=== PATIENT | female | born 1985 | race Caucasian/White ===

== ENCOUNTER 2016-05-05 12:30 | Inpatient (IN) | payer OTHER ==
[~2016-05-05] VITALS: Ht 165.1 cm; Wt 65.8 kg
--- NOTE | ~2016-05-05 | HC ---
[facility] [address] [place] [address] CONSULTATION Name: TADDELROY Pineda Room #: 450-[facility] IN M.R.#: [id number] Admission: 05/05/16 Attend Phys: Te Metcalf MD Discharge: Date of : 81 Report #: [id number] THIS REPORT FOR: //name// CC: Carmela Metcalf INFECTIOUS DISEASE CONSULTATION REASON FOR CONSULTATION: I was asked to evaluate concerning possible Lyme disease. HISTORY OF PRESENT ILLNESS: The patient was a 30-year-old who presented with headache and paresthesias to her left side of her body, face, arm, leg. 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 She feels that this is a different type of headache for her. She has had a pressure pain for at least two to three weeks, then exacerbation of this with acute left sided headache and paresthesias. Imaging studies were negative including CT scan of the head and MRI scan of the head. Previous to this, she has been diagnosed with a PFO and cardiology evaluation was concerned about possible POTS syndrome. About 6 months ago, she developed arthralgias and myalgias associated with profound fatigue. Actually the fatigue has been going on for several years, but the arthralgias was a newer finding, mostly involving her hands, elbows and her left knee. Workup so far has been inconclusive. There was a suspicion that she may have had Lyme's disease by serology testing. Her IgM to her recollection Western blot was positive with a negative IgG. She was treated with a 3 week course of doxycycline. Following this, she was seen by Infectious Diseases at [facility] who felt that Lyme disease was not the current diagnosis. She is unclear whether she has had other autoimmune workup. She is HIV negative and TSH she says was normal. In addition to the above, she has had tick exposure when she was a young child and again during, college. No definite deer tick exposure. No prolonged tick exposure. ALLERGIES: None. MEDICATIONS: As noted on her MAR. She has been on no recent antibiotics. REVIEW OF SYSTEMS: Notes no fever, chills or sweats. No rashes. No adenopathy. No cough or sputum production. No nausea, vomiting or diarrhea. PAST MEDICAL HISTORY: Palpitations, migraine headaches, syncopal episodes, PFO. FAMILY HISTORY: Noncontributory. SOCIAL HISTORY: Nonsmoker, no significant alcohol intake. She has no [facility] [address] [place] [address] CONSULTATION Name: DELROY MISHRA Room #: 450-P [facility]#: [id number] Admission: 05/05/16 Attend Phys: Te Metcalf MD Discharge: Date of : 81 Report #: [id number]. PHYSICAL EXAMINATION: VITAL SIGNS: Afebrile, hemodynamically stable. GENERAL: She was alert and cooperative and pleasant, in no acute distress. SKIN: Unremarkable. She had tattoo on her lower back. No adenopathy head and neck. HEENT: Unremarkable. LUNGS: Clear. HEART: Regular. ABDOMEN: Soft and nontender. EXTREMITIES: Joints unremarkable other than tender left ankle because she sprained this she said several weeks ago. LABORATORY STUDIES: Sodium 137, potassium 3.7, creatinine 1, liver function tests normal. CRP normal. Sedimentation rate normal. Drug screen negative. Hemoglobin 14, white count 9.4. TSH normal. Urinalysis unremarkable. Echocardiogram small PFO, otherwise normal. IMPRESSION AND PLAN: A 30-year-old with headache and paresthesias. I do not see any evidence of active Lyme disease at this time. I do suspect that her fatigue and arthralgias fit most consistently with chronic fatigue syndrome with the cardiac issues, POTS may well be a reasonable consideration. By history, appears that she has a false positive IgM Lyme, Western blot antibody test. We would recommend obtaining her outside records to confirm her reports. Would pursue autoimmune evaluation if not done yet. Would recommend no antibiotic administration at this time. I will check back when her outside records are available. <ELECTRONICALLY SIGNED> By: Jose Lombardi MD 05/07/16 1027 1746 29 Jose Lombardi MD /nt
--- NOTE | ~2016-05-05 | EKG ---
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
--- NOTE | ~2016-05-05 | D ---
[facility] [address] [place] [address] DISCHARGE SUMMARY Name: DELROY MISHRA Room #: 450-P [facility] IN M.R.#: [id number] Admission: 05/05/16 Attend Phys: Te Metcalf MD Discharge: 05/07/16 Date of : 81 Report #: [id number] THIS REPORT FOR: //name// CC: Carmela Metcalf DATE OF SERVICE: 05/07/2016 TYPE OF DICTATION: Discharge summary. After [id number] encounter, I did see the patient and examined her on the day of discharge 05/07/2016. DISCHARGE DIAGNOSES: 1. Left sided weakness, resolved. 2. Headache. 3. Status migrainosus. 4. Hyperlipidemia. 5. Hypomagnesemia, resolved. 6. Patent foramen ovale. 7. History of palpitation. 8. History of Lyme disease. DISCHARGE MEDICATIONS: See discharge summary. HOSPITAL COURSE: The patient was admitted to the hospital secondary to left-sided numbness and weakness with chronic headache and the patient known to have a history of patent foramen ovale, so Cardiology and Neurology both were consulted. On the Cardiology site, Dr. Wiley does think these symptoms are secondary to her PFO, think that we can manage her PFO medically for now. On the other site, she had Neurology consult. MRI was ordered and came back negative and she received 2 infusions of Depakote and third one is going to be this afternoon today and then, she will remain mg p.o. b.i.d. Neurology recommended her to go home after the fusion of Depakote and to follow up in 1 month from now. The patient is stable and she is going home as mentioned above. <ELECTRONICALLY SIGNED> By: Selene Mock MD 05/08/16 1708 1307 1500 Selene Mock MD /nt
--- NOTE | ~2016-05-05 | HC ---
[facility] [address] [place] [address] CONSULTATION Name: DELROY MISHRA Room #: 450-P [facility] IN .R.#: [id number] Admission: 05/05/16 Attend Phys: Te Metcalf MD Discharge: 05/07/16 Date of : 81 Report #: [id number] THIS REPORT FOR: //name// CC: Carmela Metcalf DATE OF SERVICE: 05/06/2016 REASON FOR CONSULTATION: Numbness and tingling with a patent foramen ovale on echocardiography. HISTORY OF PRESENT ILLNESS: This is a very 30-year-old female patient, who has a history of migraine headaches; presented for evaluation of severe head pressure, nausea, vomiting, and left-sided and left facial numbness. This extended along the left side, but it involved the superior as well as the middle and lower parts of the face on the left side. She denied any significant prior symptomatology. She has never had anything to the point of having numbness and tingling like this. She has no orthopnea, PND, syncope, near syncope otherwise. He noticed that the sensation became somewhat uncomfortable and her headache worsened. In view of this, she went to emergency room for further assessment and evaluation. Six days or so ago, she had been seen as an outpatient at an urgent care clinic and prescribed prednisone and scheduled for an MRI, which has not yet been accomplished. She noticed that she had some episodes of dropping items with her hand in the meantime. She does report approximately 9 months history of these migrainous type headaches that have occurring on a weekly basis. She states anyhow recently they became much worse. She has had no dizziness or lightheadedness or falls or even blacking out with these. She does have a history of PFO, which was evaluated sometime ago, by echocardiography and correctly not closed. PAST MEDICAL HISTORY SIGNIFICANT FOR: 1. Lyme disease. 2. Patent foramen ovale. 3. Palpitation unrelated to the above. ALLERGIES: No known drug allergies. MEDICATIONS AT HOME: Prednisone, meclizine and ____. PAST SURGICAL HISTORY: Significant for no major surgical procedures. SOCIAL HISTORY: The patient does not smoke, does not consume alcohol, does not follow particular exercise regimen or dietary restriction. REVIEW OF SYSTEMS: Except for symptoms previously mentioned and those commensurate with comorbid states, the 10 point review of system is negative. [address] [address] CONSULTATION Name: TADDELROY Room #: 450-P [facility] IN .R.#: [id number] Admission: 05/05/16 Attend Phys: Te Metcalf MD Discharge: 05/07/16 Date of : 81 Report #: [id number] PHYSICAL EXAMINATION: VITAL SIGNS: Are noted and reviewed in the chart. GENERAL: A well-developed, well-nourished white female, resting comfortably, in no acute distress. HEENT: Normocephalic, atraumatic. Pupils are equal, round, reactive to light and accommodation. Extraocular muscles are intact. Sclerae and conjunctivae are anicteric. NECK: JVD is normal. Carotid upstrokes are bilaterally symmetrical. No bruits are heard. No thyromegaly. No lymphadenopathy. LUNGS: Clear to auscultation. No wheezes, rhonchi or crackles. No CVA tenderness. CARDIOVASCULAR: Demonstrates a regular rhythm. Normal first and second heart sounds. No ventricular or atrial gallops, no rubs noted. No murmurs. No lifts or heaves, PMI normal. ABDOMEN: Soft, nontender, nondistended. Normal bowel sounds. EXTREMITIES: Without cyanosis, clubbing or edema. Distal pulses are intact. DTR symmetrical. NEUROLOGIC: Demonstrates some numbness in the left side of her body as described above. No actual coordination deficits or focal deficits were identified. Cranial nerves 2 through 12 are grossly normal and symmetrical. PSYCHIATRIC: Alert, oriented with normal affect. SKIN: Warm and dry. LABORATORY DATA: Demonstrates magnesium of 1.6, potassium of 3.7, BUN and creatinine of 16 and 1.0, calcium was 9.1. H and H is 14.3 and 41.3. RADIOLOGIC DATA: CT scan failed to demonstrate any bleed. MRI is pending. Electrocardiogram, normal sinus rhythm, nonspecific ST-T wave changes. IMPRESSION: 1. Numbness and tingling, which does not follow a strictly neurologic distribution with the upper part of the forehead being ipsilateral as opposed to contralateral. Neurology will be consulted. No bleeds are noted. 2. Paten foramen ovale. There is no indication for closing this, except for recurrent embolic and documented embolic events or neurologic events on treatment (anticoagulation) or documented embolic events in an individual that had this significantly high care home risk such as younger individuals. In view of the absence of any objective evidence of embolic event and the possibility of being related migrainous headaches, at this point in time, there is no need to proceed with anything further. <ELECTRONICALLY SIGNED> By: Zaki Wiley MD 05/08/16 1235 53 [id number] Zaki Wiley MD /nt
--- NOTE | ~2016-05-05 | 2DMMODE ---
[facility] [place] [address] 2 D/M-MODE ECHOCARDIOGRAM Name: DELROY MISHRA Edwin Room #: 450-P [facility] IN .#: [id number] Admission: 05/05/16 Attend Phys: Maria A Bolton Discharge: Date of : 81 Date of Service: 05/06/16817 Report #: [id number] THIS REPORT FOR: //name// Transthoracic Echocardiography Ordering physician: Abby Crowe Referring physician: Carmela Alvarez Saida A. Inductor Tester: Sharita Jaimes Indications/History: PFO history. TIA vs. migraines. BP: 110 / HR: 60bpm Height: 65in Weight: 145.7lb 80 Study data: M-mode, complete 2D, complete spectral Doppler, and color Doppler. Location: Echo laboratory. Routine. Image quality was adequate. 2D measurements Normal Normal LVID ED 39mm 36-57 IVS ED 8.2mm 6-11 LVID ES 28mm 23-40 LVPW ED 7.7mm 6-11 LA volume 16ml/m2 16-28 AoRoot diam 29.5mm 21-37 index ED LVOT diameter 20mm 18-23 Findings: Left ventricle: The cavity size was normal. Wall thickness was normal. Systolic function was normal. The estimated ejection fraction was in the range of 55%. Wall motion was normal. Right ventricle: The cavity size was normal. Systolic function was normal. Right atrium: The atrium was normal in size. Left atrium: The atrium was normal in size. Volume index: 16ml/m2 (S). Atrial septum: There was a small patent foramen ovale noted with bubble study. Aortic valve: Structurally normal valve. Doppler: [facility] [address] [place] [address] 2 D/M-MODE ECHOCARDIOGRAM Name: DELROY MISHRA Room #: 450-P [facility] IN M.R.#: [id number] Admission: 05/05/16 Attend Phys: eT SteffMaria A Garner Discharge: Date of : 81 Date of Service: 05/06/16 0818 Report #: [id number] There was no stenosis. No regurgitation. Peak velocity: 117.3cm/s (S). Mitral valve: Structurally normal valve. Doppler: There was no evidence for stenosis. Trivial regurgitation. Peak E-wave velocity: 100.3cm/s. Peak gradient: 4mm Hg (D). Peak A-wave velocity: 41.9cm/s. Tricuspid valve: Structurally normal valve. Doppler: There was no evidence for stenosis. Mild regurgitation. Regurgitant peak velocity: 207.8cm/s. Peak RV-RA gradient: 17mm Hg (S). Pulmonic valve: Structurally normal valve. Doppler: There was no evidence for stenosis. Mild regurgitation. Pericardium: There was no pericardial effusion. Aorta: Aortic root: The aortic root was normal in size. Pulmonary artery: Systolic pressure was estimated to be 22mm Hg. Diastolic function: Normal diastolic function. Systemic veins: Inferior vena cava: The vessel was normal in size; the respirophasic diameter changes were in the normal range (= 50%). Conclusions 1. Left ventricle: The cavity size was normal. Wall thickness was normal. Systolic function was normal. The estimated ejection fraction was in the range of 55%. 2. Atrial septum: There was a small patent foramen ovale noted with bubble study. 3. Aortic valve: Structurally normal valve. 4. Mitral valve: Structurally normal valve. Trivial regurgitation. 5. Pulmonic valve: Mild regurgitation. 6. Tricuspid valve: Structurally normal valve. Mild regurgitation. 7. Pulmonary arteries: Systolic pressure was estimated to be 22mm Hg. <ELECTRONICALLY SIGNED> By: Zaki Wiley MD 05/06/16908 8 Zaki Wiley MD /ishan
[2016-05-05 12:31] VITALS: BP 128/78
[2016-05-05] MEDS ORDERED: PREDNISONE 10 M10 MG PO (13:24)
[2016-05-05] MEDS ORDERED: ANTIVERT25 MG PO (13:25)
[2016-05-05] MEDS ORDERED: CARISOPRODOL250 MG PO (13:27)
[2016-05-05 13:46] LABS: ABSOLUTE NEUTROPHILS 8.2 thou/uL (1.4-8.2); BASOPHILS 0.1 % (0.0-2.0); EOSINOPHILS 0.1 % (0.0-3.0); HEMATOCRIT 41.3 % (37.0-47.0); HEMOGLOBIN 14.3 gm/dL (12.0-15.0); LYMPHOCYTES 9.9 % (24.0-44.0); MCH 29.1 pg (26.0-34.0); MCHC 34.6 % (28.0-37.0); MCV 83.9 fL (80.0-100.0); MONOCYTES 2.6 % (1.0-8.0); PLATELET COUNT 225 thou/uL (150-400); POLYS 87.3 % (36.0-66.0); RBC 4.92 mil/uL (4.20-5.00); RDW 12.8 % (10.5-14.5); WBC 9.4 thou/uL (4.0-11.0)
[2016-05-05 13:48] LABS: MANUAL DIFF NO
[2016-05-05 13:51] LABS: ANION GAP 10 mmol/L (7-16); BUN 16 mg/dL (7-18); CALCIUM 9.1 mg/dL (8.5-10.1); CHLORIDE 100 mmol/L (98-107); CO2 27 mmol/L (21-32); GLUCOSE 113 mg/dL (70-99); POTASSIUM 3.7 mmol/L (3.5-5.1); SODIUM 137 mmol/L (136-145)
[2016-05-05 13:54] LABS: URINE BILIRUBIN NEGATIVE (Negative); URINE BLOOD NEGATIVE (Negative); URINE COLOR YELLOW; URINE GLUCOSE-RANDOM* NEGATIVE (Negative); URINE KETONES NEGATIVE (Negative); URINE NITRITE NEGATIVE (Negative); URINE PROTEIN (DIPSTICK) NEGATIVE (Negative); URINE SPECIFIC GRAVITY <= 1.005 (1.003-1.035); URINE UROBILINOGEN 0.2 E.U./dl (0.2-1.0)
[2016-05-05 14:00] LABS: ALBUMIN 3.9 g/dL (3.4-5.0); ALKALINE PHOSPHATASE 62 U/L (46-116); MAGNESIUM 1.6 mg/dL (1.8-2.4); SGOT 13 U/L (15-37); SGPT 18 U/L (30-65); TOTAL BILIRUBIN 0.5 mg/dL (<0.1-1.0); TOTAL PROTEIN 7.7 g/dL (6.4-8.2); TROPONIN-I < 0.04 ng/mL (<0.04-0.07)
[2016-05-05 14:02] LABS: AMP/METHAMP Negative (Negative); BARBITURATES Negative (Negative); BENZODIAZEPINES Negative (Negative); COCAINE Negative (Negative); METHADONE Negative (Negative); OPIATES Negative (Negative); PCP Negative (Negative); THC Negative (Negative)
[2016-05-05 14:06] LABS: APTT 23.8 Seconds (24.5-32.8); PROTIME 10.6 Seconds (9.3-11.4)
[2016-05-05 15:05] VITALS: BP 114/79
[2016-05-05 17:00] VITALS: BP 104/73
[2016-05-05 19:04] VITALS: BP 104/64
[2016-05-05 23:37] VITALS: BP 91/55
[2016-05-06 00:53] VITALS: BP 100/58
[2016-05-06 02:28] VITALS: BP 102/64
[2016-05-06 08:15] VITALS: BP 111/74
[2016-05-06 16:00] VITALS: BP 112/77
[2016-05-06 19:25] VITALS: BP 113/75
[2016-05-07 03:51] VITALS: BP 96/57
[2016-05-07 05:55] LABS: CHOLESTEROL 197 mg/dL (<200); HDL CHOLESTEROL 75 mg/dL (>40); LDL CHOLESTEROL 115 mg/dL (<100); TC:HDL 2.6 Ratio (Not establshd); TRIGLYCERIDE 35 mg/dL (<150); VLDL 7 mg/dL (<40)
[2016-05-07 05:56] LABS: SERUM ASSESSMENT Clear
[2016-05-07 07:55] VITALS: BP 103/71
[2016-05-07 11:37] VITALS: BP 99/68
[2016-05-07] MEDS ORDERED: TOPAMAX 25 MG T25 M1 PO (13:09)
[2016-05-07] MEDS ORDERED: ATORVASTATIN CA10 MG PO (13:09)
[2016-05-07 13:22] VITALS: BP 99/68
[2016-05-07 13:30] VITALS: BP 99/68
[2016-05-07 16:37] VITALS: BP 115/77
== END 2016-05-07 17:56 | disposition home or self-care (01) | DRG 103 ==
LOC: ER 12:30 → EROBS 14:37 → 4W 14:37
PROVIDERS: Emergency Medicine; Psychiatry & Neurology Neurology
DX: G43.901 Migraine, unspecified, not intractable, with status migrainosus (principal); G45.9 Transient cerebral ischemic attack, unspecified; Q21.1 Atrial septal defect; E78.5 Hyperlipidemia, unspecified; R20.9 Unspecified disturbances of skin sensation; E83.42 Hypomagnesemia; Z28.21 Immunization not carried out because of patient refusal; R53.82 Chronic fatigue, unspecified; R53.1 Weakness
CPT/HCPCS: 10045

== ENCOUNTER 2016-12-05 15:10 | Emergency (ER) | payer OTHER ==
[~2016-12-05] VITALS: Ht 165.1 cm; Wt 72.6 kg
--- NOTE | ~2016-12-05 | EKG ---
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 : 1985 Requested By: Heriberto Ramirez Order Number: [id number] MD: Darin Polk Measurements Intervals [place] Rate: 114 P: 65 OK: 166 QRS: 61 QRSD: 96 T: -1 QT: 331 QTc: 456 Interpretive Statements Sinus tachycardia Left atrial enlargement Anteroseptal infarct, age indeterminate Compared to ECG 05/05/2016 13:42:48 Atrial abnormality now present Myocardial infarct finding now present Sinus rhythm no longer present Electronically Signed On 12-07-2016 22:11:18 CDT by Darin Polk [email or web address] <ELECTRONICALLY SIGNED> By: Darin Polk MD 12/07/16 2211 1519 1519 Darin Polk MD /EPI
[~2016-12-05 15:10] MED LIST: ANTIVERT25 MG PO; ATORVASTATIN CA10 MG PO; CARISOPRODOL250 MG PO; PREDNISONE 10 M10 MG PO; TOPAMAX 25 MG T25 M1 PO
[2016-12-05] MEDS ORDERED: LEXAPRO 10 MG T10 M2 PO (15:28)
[2016-12-05 15:56] LABS: ABSOLUTE NEUTROPHILS 4.6 thou/uL (1.4-8.2); BASOPHILS 0.5 % (0.0-2.0); EOSINOPHILS 0.9 % (0.0-3.0); HEMATOCRIT 40.2 % (37.0-47.0); HEMOGLOBIN 13.7 gm/dL (12.0-15.0); LYMPHOCYTES 27.8 % (24.0-44.0); MCH 28.6 pg (26.0-34.0); MCV 84.1 fL (80.0-100.0); MONOCYTES 7.5 % (1.0-8.0); PLATELET COUNT 220 thou/uL (150-400); POLYS 63.3 % (36.0-66.0); RBC 4.78 mil/uL (4.20-5.00); RDW 12.8 % (10.5-14.5); WBC 7.2 thou/uL (4.0-11.0)
[2016-12-05 15:57] LABS: MANUAL DIFF NO
[2016-12-05 16:07] LABS: ANION GAP 4 mmol/L (7-16); BUN 10 mg/dL (7-18); CALCIUM 9.1 mg/dL (8.5-10.1); CHLORIDE 101 mmol/L (98-107); CO2 30 mmol/L (21-32); CREATININE 0.9 mg/dL (0.6-1.0); GLUCOSE 101 mg/dL (74-106); POTASSIUM 3.1 mmol/L (3.5-5.1); SODIUM 135 mmol/L (136-145)
[2016-12-05 16:15] LABS: ALBUMIN 4.1 g/dL (3.4-5.0); ALKALINE PHOSPHATASE 77 U/L (46-116); SGOT 25 U/L (15-37); SGPT 25 U/L (30-65); TOTAL BILIRUBIN 0.4 mg/dL (<0.1-1.0); TOTAL PROTEIN 8.3 g/dL (6.4-8.2); TROPONIN-I < 0.04 ng/mL (<0.04-0.07)
[2016-12-05 17:26] LABS: URINE BILIRUBIN NEGATIVE (Negative); URINE BLOOD NEGATIVE (Negative); URINE COLOR YELLOW; URINE GLUCOSE-RANDOM* NEGATIVE (Negative); URINE KETONES NEGATIVE (Negative); URINE LEUKOCYTES-REFLEX NEGATIVE (Negative); URINE PROTEIN (DIPSTICK) NEGATIVE (Negative); URINE SPECIFIC GRAVITY <= 1.005 (1.003-1.035); URINE UROBILINOGEN 0.2 E.U./dl (0.2-1.0)
[2016-12-05 17:48] LABS: AMP/METHAMP Negative (Negative); BARBITURATES Negative (Negative); BENZODIAZEPINES Negative (Negative); COCAINE Negative (Negative); METHADONE Negative (Negative); OPIATES Negative (Negative); PCP Negative (Negative); THC Negative (Negative)
== END 2016-12-05 18:18 | disposition home or self-care (01) ==
LOC: ER 15:10
PROVIDERS: Physician Assistant
DX: E87.6 Hypokalemia (principal); R00.2 Palpitations; G43.909 Migraine, unspecified, not intractable, without status migrainosus